=== PATIENT | male | born 1970 | race Caucasian/White ===

== ENCOUNTER → 2023-09-15 14:19 | Outpatient (BNVA) | payer OTHER, SELFPAY | PROVIDERS: PCP Family Medicine; Visit Provider Family Medicine | DX: Z12.11 Encounter for screening for malignant neoplasm of colon (principal); Z00.00 Encounter for general adult medical examination without abnormal findings | CPT/HCPCS: 80053; 80061; 85025 ==

== ENCOUNTER 2023-12-18 06:03 | Day surgery (SDC) | payer OTHER, SELFPAY ==
--- NOTE | 2023-12-18 06:06 | P.HP_ITS ---
Same Day Surgery H&P Indication for Procedure/HPI DATE OF PROCEDURE: December 18, 2023 CHIEF COMPLAINT/INDICATIONFOR SURGICAL PROCEDURE: need for screening colonoscopy PREOP DIAGNOSIS: need for screening colonoscopy PLANNED PROCEDURE: Operation Date: 12/18/23 07:15 Proposed Procedures p Colonoscopy - 42934, Z12.11(Not Applicable) - Nabeel Montes MD Medications/Allergies* Allergies/Adverse Reactions Allergy/AdvReac Type Severity Reaction Status Date / Time Sulfa (Sulfonamide Allergy burning Verified 12/16/23 09:44 Antibiotics) Pertinent History/Comorbid Conditions* Medical History (Updated 09/06/22 @ 13:07 by Mariana Smith MD) History of esophageal stricture GERD (gastroesophageal reflux disease) Hyperlipidemia Anxiety Mitral valve prolapse Surgical History (Updated 09/06/22 @ 12:46 by Mariana Smith MD) History of laser assisted in situ keratomileusis History of esophageal dilatation History of left knee surgery cartilage replaced with cadaver tissue Family History (Updated 09/06/22 @ 12:52 by Mariana Smith MD) ALS (amyotrophic lateral sclerosis) Father Hyperlipidemia Cancer Grandfather lung (smoker) Hypertension Denies family history of Clotting disorder Bleeding disorder Stroke Social History Smoking and tobacco/nicotine status: never used tobacco/nicotine Alcohol intake: never Substance/Drug Use: never Household members: spouse Marital status: Number of children: 1 service: Yes status: 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
[2023-12-18 06:21] VITALS: BP 130/96; PULSE 91; RESP 18; TEMP 36.1; O2SAT 96; BMI 29.4
[2023-12-18] MEDS: sodium chloride 0.9% 1,000 ML 30 ML IV (06:29)
--- NOTE | 2023-12-18 06:50 | P.ANESASSM_ITS ---
Pre-Anesthetic Assessment Height/Weight: Height 5 ft 10 in Weight 205 lb Temp Pulse Resp BP Pulse Ox O2 Del Method 97 F L 91 18 130/96 96 Room Air 12/18/23 06:21 12/18/23 06:21 12/18/23 06:21 12/18/23 06:21 12/18/23 06:21 12/18/23 06:21 Preop Diagnosis: need for screening colonoscopy Operation Date: 12/18/23 07:15 Proposed Procedures p Colonoscopy - 25241, Z12.11(Not Applicable) - Nabeel Montes MD Was Beta Lucas taken within 24 hours: N/A Was Clonidine taken within 24 hours: N/A Last intake: Intake Last Liquid Date 12/17/23 Last Liquid Time 22:00 Last Solid Date 12/16/23 Last Solid Time 23:00 Social No alcohol and No tobacco Exam alert, oriented x 3, clear to auscultation bilaterally and regular rate & rhythm Airway Submandibular: within normal limits Cervical ROM: within normal limits Mallampati: Class I Dentition: full Comments: Comments: Very large cordova Anesthetic Plan ASA status: 2 Anesthesia: MAC Other: No prior issues with anesthesia Completed bowel prep History of GERD, on Protonix Admits to mild anxiety Denies any cardiac or pulmonary issues METs greater than 4 Plan for MAC anesthetic Medications/Allergies Home Medications Medication Instructions Recorded Confirmed Last Taken Type atorvastatin 20 mg tablet 20 mg PO DAILY #90 tabs 09/15/23 12/16/23 12/17/23 Rx diclofenac sodium 1 % topical gel 2 g topical QID #100 grams 09/15/23 12/16/23 Unknown Rx (Voltaren Arthritis Pain) pantoprazole 40 mg tablet,delayed 40 mg PO DAILY #90 tabs 09/15/23 12/16/23 12/17/23 Rx release paroxetine HCl 20 mg tablet 20 mg PO DAILY #90 tabs 10/27/23 12/16/23 12/17/23 Rx Allergies Allergy/AdvReac Type Severity Reaction Status Date / Time Sulfa (Sulfonamide Allergy burning Verified 12/16/23 09:44 Antibiotics) Current Medications Generic Name Dose Route Start Last Admin Trade Name Freq PRN Reason Stop Dose Admin Sodium Chloride 1,000 mls @ 30 mls/hr 12/18/23 06:15 12/18/23 06:29 Sodium Chloride 0.9% IV 12/19/23 06:14 30 mls/hr .Q24H SABINA Administration PFSH Anesthesia Medical History History of esophageal stricture GERD (gastroesophageal reflux disease) Hyperlipidemia Anxiety Mitral valve prolapse Surgical History History of laser assisted in situ keratomileusis History of esophageal dilatation History of left knee surgery cartilage replaced with cadaver tissue Family History Father ALS (amyotrophic lateral sclerosis) Grandfather Cancer lung (smoker) Other Hyperlipidemia Hypertension Denies family history of Clotting disorder Bleeding disorder Stroke Social History Smoking and tobacco/nicotine status: never used tobacco/nicotine Alcohol intake: never Substance/Drug Use: never Household members: spouse Marital status: Number of children: 1 service: Yes status: 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
[2023-12-18 08:00] VITALS: BP 107/74; PULSE 69; RESP 18; TEMP 36.2; O2SAT 94
[2023-12-18 08:24] VITALS: BP 135/99; PULSE 70; RESP 18; O2SAT 100
--- NOTE | 2023-12-18 08:35 | ANE.PACU2 ---
Inpatient post-anesthesia follow up: Airway intact: Yes Vital signs: Temperature 97.2 F Pulse Rate 70 Respiratory Rate 18 Blood Pressure 135/99 Pulse Oximetry 100 Oxygen Delivery Me thod Room Air Oxygen Flow Rate Fraction of Inspir ed Oxygen Hydration adequate: Yes Nausea and vomiting: No Pain level: 1 Mental status: Baseline
== END 2023-12-18 08:35 | disposition home or self-care (01) ==
PROVIDERS: PCP Family Medicine; Visit Provider Surgery
PROC: 0DJD8ZZ Inspection of Lower Intestinal Tract, Via Natural or Artificial Opening Endoscopic (ICD-10-PCS; CPT 45378; principal; 2023-12-18 07:15)
DX: Z12.11 Encounter for screening for malignant neoplasm of colon (principal); D12.0 Benign neoplasm of cecum; D12.8 Benign neoplasm of rectum; K21.9 Gastro-esophageal reflux disease without esophagitis; E78.5 Hyperlipidemia, unspecified; F41.9 Anxiety disorder, unspecified; K57.30 Diverticulosis of large intestine without perforation or abscess without bleeding
CPT/HCPCS: 45380; 45385; 88305; J2704; J7030